=== PATIENT | female | born 1950 | race Caucasian/White ===

== ENCOUNTER → 2019-03-26 | Outpatient (CLI) | payer MEDICARE, OTHER ==
--- NOTE | 2019-04-01 18:59 | Diagnostic Imaging Report ---
INDICATION: Routine screening. Comparison is made with prior mammograms from 11/12/2017 and 04/16/2016. 2-D and 3-D bilateral screening mammography was performed. The current study was also evaluated with a Computer Aided Detection (CAD) system. 3-D tomosynthesis was also performed and reviewed. FINDINGS: Scattered fibroglandular densities are identified bilaterally. There are benign-appearing calcifications throughout both breasts. No dominant mass or malignant-appearing microcalcifications are seen. Axillae are unremarkable. IMPRESSION: No mammographic features suspicious for malignancy are identified. ACR BI-RADS Category 2: Benign findings. Result letter will be mailed to the patient. Note: At least 10% of breast cancer is not imaged by mammography. Dictated by: Dictated on workstation # [id number]
== END ==
LOC: MERGE 09:47 → RAD 09:47
PROVIDERS: ATTEND Family Medicine
DX: Z12.31 Encounter for screening mammogram for malignant neoplasm of breast (principal)
CPT/HCPCS: 77067

== ENCOUNTER → 2019-03-26 | Outpatient (CLI) | payer MEDICARE, OTHER ==
[2019-03-26 09:11] LABS: HEMOGLOBIN 13.8 G/DL (11.5-16.0); RED CELL DISTRIBUTION WIDTH 13.4 % (10.0-14.5)
[2019-03-26 09:31] LABS: ALANINE AMINOTRANSFERASE 14 U/L (0-55); ALBUMIN 4.2 GM/DL (3.2-4.5); ALKALINE PHOSPHATASE 66 U/L (40-136); BILIRUBIN,TOTAL 0.4 MG/DL (0.1-1.0); BUN/CREATININE RATIO 22; CALCIUM 9.3 MG/DL (8.5-10.1); CARBON DIOXIDE 27 MMOL/L (21-32); CHLORIDE 91 MMOL/L (98-107); CREATININE SERUM 0.85 MG/DL (0.60-1.30); GFR ESTIMATED > 60; GLUCOSE 92 MG/DL (70-105); POTASSIUM 4.2 MMOL/L (3.6-5.0); SODIUM 132 MMOL/L (135-145); TOTAL PROTEIN 7.1 GM/DL (6.4-8.2)
[2019-03-26 09:38] LABS: CLARITY,URINE CLEAR; COLOR,URINE YELLOW; GLUCOSE, URINE (UA) NEGATIVE (NEGATIVE); PH,URINE 7.5 (5-9); PROTEIN,URINE NEGATIVE (NEGATIVE)
[2019-03-26 09:39] LABS: BACTERIA,URINE FEW /HPF; BILIRUBIN,URINE NEGATIVE (NEGATIVE); KETONES,URINE NEGATIVE (NEGATIVE); LEUKOCYTE ESTERASE ,URINE 1+ (NEGATIVE); NITRITE,URINE NEGATIVE (NEGATIVE); RBC,URINE 0-2 /HPF; SQUAMOUS EPITHELIAL CELL,UR 0-2 /HPF; UROBILINOGEN,URINE 0.2 MG/DL (NORMAL)
[2019-03-26 14:59] LABS: CHOLESTEROL 249 MG/DL (< 200); HDL CHOLESTEROL 79 MG/DL (40-60); TRIGLYCERIDES 93 MG/DL (<150); VLDL CHOLESTEROL 19 MG/DL (5-40)
== END ==
LOC: LAB FS 08:35
PROVIDERS: ATTEND Family Medicine
DX: I10 Essential (primary) hypertension (principal); E80.29 Other porphyria
CPT/HCPCS: 36415; 80053; 80061; 81000; 84443; 85027; 87088

== ENCOUNTER → 2019-07-14 | Outpatient (CLI) | payer MEDICARE, OTHER ==
[2019-07-14 14:38] LABS: CHOLESTEROL 214 MG/DL (< 200); HDL CHOLESTEROL 79 MG/DL (40-60); TRIGLYCERIDES 65 MG/DL (<150); VLDL CHOLESTEROL 13 MG/DL (5-40)
== END ==
LOC: LAB FS 10:28
PROVIDERS: ATTEND Family Medicine
DX: Z09 Encounter for follow-up examination after completed treatment for conditions other than malignant neoplasm (principal)
CPT/HCPCS: 36415; 80061

== ENCOUNTER → 2020-04-18 | Outpatient (CLI) | payer MEDICARE, OTHER ==
[2020-04-18 14:19] LABS: HEMOGLOBIN 13.4 G/DL (11.5-16.0); WHITE BLOOD COUNT 5.1 10^3/uL (4.3-11.0)
[2020-04-18 14:20] LABS: MEAN PLATELET VOLUME 8.9 FL (7.4-10.4); RED CELL DISTRIBUTION WIDTH 12.8 % (10.0-14.5)
[2020-04-18 14:24] LABS: CLARITY,URINE CLEAR; COLOR,URINE YELLOW
[2020-04-18 14:25] LABS: BACTERIA,URINE NEGATIVE /HPF; BILIRUBIN,URINE NEGATIVE (NEGATIVE); GLUCOSE, URINE (UA) NEGATIVE (NEGATIVE); KETONES,URINE TRACE (NEGATIVE); LEUKOCYTE ESTERASE ,URINE NEGATIVE (NEGATIVE); NITRITE,URINE NEGATIVE (NEGATIVE); PROTEIN,URINE NEGATIVE (NEGATIVE); RBC,URINE RARE /HPF
[2020-04-18 14:55] LABS: ALANINE AMINOTRANSFERASE 18 U/L (0-55); ALKALINE PHOSPHATASE 56 U/L (40-136); BILIRUBIN,TOTAL 0.4 MG/DL (0.1-1.0); BUN/CREATININE RATIO 18; CALCIUM 9.6 MG/DL (8.5-10.1); CARBON DIOXIDE 26 MMOL/L (21-32); CHLORIDE 91 MMOL/L (98-107); CREATININE SERUM 0.73 MG/DL (0.60-1.30); GFR ESTIMATED > 60; GLUCOSE 93 MG/DL (70-105); POTASSIUM 4.1 MMOL/L (3.6-5.0); SODIUM 129 MMOL/L (135-145); TOTAL PROTEIN 6.9 GM/DL (6.4-8.2)
[2020-04-18 14:56] LABS: ALBUMIN 4.2 GM/DL (3.2-4.5)
[2020-04-18 21:41] LABS: CHOLESTEROL 208 MG/DL (< 200); HDL CHOLESTEROL 74 MG/DL (40-60); TRIGLYCERIDES 70 MG/DL (<150); VLDL CHOLESTEROL 14 MG/DL (5-40)
== END ==
LOC: LAB FS 13:54
PROVIDERS: ATTEND Family Medicine
DX: E78.5 Hyperlipidemia, unspecified (principal); I10 Essential (primary) hypertension
CPT/HCPCS: 36415; 80053; 80061; 81000; 84443; 85027

== ENCOUNTER → 2020-09-27 | Outpatient (CLI) | payer MEDICARE, OTHER ==
[2020-09-27 12:32] LABS: BUN/CREATININE RATIO 23; CARBON DIOXIDE 26 MMOL/L (21-32); CHLORIDE 93 MMOL/L (98-107); CREATININE SERUM 0.75 MG/DL (0.60-1.30); GFR ESTIMATED > 60; POTASSIUM 4.3 MMOL/L (3.6-5.0); SODIUM 128 MMOL/L (135-145)
[2020-09-27 12:33] LABS: ALANINE AMINOTRANSFERASE 36 U/L (0-55); ALBUMIN 4.3 GM/DL (3.2-4.5); ALKALINE PHOSPHATASE 54 U/L (40-136); BILIRUBIN,TOTAL 0.2 MG/DL (0.1-1.0); GLUCOSE 99 MG/DL (70-105); TOTAL PROTEIN 6.5 GM/DL (6.4-8.2)
== END ==
LOC: LAB FS 11:42
PROVIDERS: ATTEND Family Medicine
DX: R79.9 Abnormal finding of blood chemistry, unspecified (principal)
CPT/HCPCS: 36415; 80053

== ENCOUNTER → 2020-10-12 | Outpatient (CLI) | payer MEDICARE, OTHER ==
[2020-10-12 12:46] LABS: BUN/CREATININE RATIO 22; CARBON DIOXIDE 27 MMOL/L (21-32); CHLORIDE 96 MMOL/L (98-107); CREATININE SERUM 0.85 MG/DL (0.60-1.30); GFR ESTIMATED > 60; GLUCOSE 96 MG/DL (70-105); POTASSIUM 4.3 MMOL/L (3.6-5.0); SODIUM 132 MMOL/L (135-145)
[2020-10-12 12:47] LABS: ALANINE AMINOTRANSFERASE 16 U/L (0-55); ALBUMIN 4.1 GM/DL (3.2-4.5); ALKALINE PHOSPHATASE 52 U/L (40-136); BILIRUBIN,TOTAL 0.2 MG/DL (0.1-1.0); CALCIUM 9.3 MG/DL (8.5-10.1); TOTAL PROTEIN 6.4 GM/DL (6.4-8.2)
== END ==
LOC: LAB FS 11:49
PROVIDERS: ATTEND Family Medicine
DX: R79.9 Abnormal finding of blood chemistry, unspecified (principal)
CPT/HCPCS: 36415; 80053

== ENCOUNTER → 2021-02-28 | Outpatient (CLI) | payer MEDICARE, OTHER ==
[2021-02-28 08:27] LABS: HEMATOCRIT 39 % (35-52); HEMOGLOBIN 13.4 G/DL (11.5-16.0); MEAN CORPUSCULAR HEMOGLOBIN 33 PG (25-34); MEAN CORPUSCULAR HGB CONC 35 G/DL (32-36); MEAN CORPUSCULAR VOLUME 94 FL (80-99); PLATELET COUNT 294 10^3/uL (130-400); WHITE BLOOD COUNT 3.9 10^3/uL (4.3-11.0)
[2021-02-28 08:28] LABS: MEAN PLATELET VOLUME 8.4 FL (7.4-10.4)
[2021-02-28 08:35] LABS: BACTERIA,URINE NEGATIVE /HPF; BILIRUBIN,URINE NEGATIVE (NEGATIVE); CLARITY,URINE CLEAR; COLOR,URINE YELLOW; GLUCOSE, URINE (UA) NEGATIVE (NEGATIVE); KETONES,URINE NEGATIVE (NEGATIVE); LEUKOCYTE ESTERASE ,URINE NEGATIVE (NEGATIVE); NITRITE,URINE NEGATIVE (NEGATIVE); PROTEIN,URINE NEGATIVE (NEGATIVE); RBC,URINE 0-2 /HPF; SQUAMOUS EPITHELIAL CELL,UR RARE /HPF; WBC,URINE RARE /HPF
[2021-02-28 08:36] LABS: AMORPHOUS SEDIMENT,UR FEW AMOR PHOSPHATE /LPF
[2021-02-28 09:22] LABS: BUN/CREATININE RATIO 20; CARBON DIOXIDE 26 MMOL/L (21-32); CHLORIDE 96 MMOL/L (98-107); CREATININE SERUM 0.76 MG/DL (0.60-1.30); GFR ESTIMATED > 60; POTASSIUM 4.2 MMOL/L (3.6-5.0); SODIUM 131 MMOL/L (135-145)
[2021-02-28 09:23] LABS: ALANINE AMINOTRANSFERASE 20 U/L (0-55); ALBUMIN 4.1 GM/DL (3.2-4.5); ALKALINE PHOSPHATASE 65 U/L (40-136); BILIRUBIN,TOTAL 0.4 MG/DL (0.1-1.0); CALCIUM 9.1 MG/DL (8.5-10.1); GLUCOSE 90 MG/DL (70-105); TOTAL PROTEIN 6.5 GM/DL (6.4-8.2)
[2021-02-28 14:54] LABS: CHOLESTEROL 196 MG/DL (< 200); HDL CHOLESTEROL 68 MG/DL (40-60); TRIGLYCERIDES 99 MG/DL (<150); VLDL CHOLESTEROL 20 MG/DL (5-40)
[2021-02-28 15:10] LABS: BASOPHILS % (AUTO) 1 % (0-10); EOSINOPHILS % (AUTO) 3 % (0-10); LYMPHOCYTES % (AUTO) 27 % (12-44); MONOCYTES % (AUTO) 10 % (0-12); NEUTROPHILS % (AUTO) 59 % (42-75)
[2021-02-28 15:11] LABS: EOSINOPHILS # (AUTO) 0.1 10^3/uL (0.0-0.3); LYMPHOCYTES # (AUTO) 1.1 X 10^3 (1.0-4.0); MONOCYTES # (AUTO) 0.4 X 10^3 (0.0-1.0); NEUTROPHILS # (AUTO) 2.3 X 10^3 (1.8-7.8)
== END ==
LOC: LAB FS 07:53
PROVIDERS: ATTEND Family Medicine
DX: I10 Essential (primary) hypertension (principal); E78.6 Lipoprotein deficiency
CPT/HCPCS: 36415; 80053; 80061; 81000; 84443; 85025; 85027

== ENCOUNTER 2021-11-09 14:16 | Emergency (ER) | payer MEDICARE, OTHER ==
[~2021-11-09] VITALS: Ht 154.9 cm; Wt 66.3 kg
[2021-11-09] MEDS ORDERED: ONDANSETRON 4 MG (ZOFRAN) ORAL DISSOLVE TAB PO STA (14:41)
[2021-11-09] MEDS ORDERED: morphine INJ 10 MG/ML 1ML (SYR OR VIAL) IM STA (14:41)
[2021-11-09] MEDS ORDERED: KETOROLAC 30 MG/ML VIAL IM ONE (14:45)
--- NOTE | 2021-11-09 14:51 | ED Back Pain ---
General Chief Complaint: Back Problems Stated Complaint: BACK INJ Nursing Triage Note: Patient presents to the ED with c/o lower back pain after a fall. States that she was standing on a stool that had two steps and when she stepped back she fell off the stool and directly onto her bottom. She reports it took her nearly 30 minutes to stand up. Pain is increased with movement. Source of Information: Patient Exam Limitations: No Limitations History of Present Illness Date Seen by Provider: Nov 09, 2021 Time Seen by Provider: 14:30 Initial Comments Patient is a 71-year-old female who presents with acute on onset low back pain after falling from a top two step stool and landing directly on her back. The injury occurred 12 hours ago. The patient denies hitting her head, headache, neck pain, chest or upper or back pain. She is not on anticoagulation therapy. Pain is sharp, severe 8 out of 10 and is nonradicular. It is worse with movement and ambulation. There is no lower extremity weakness or loss of sensation. Patient denies other symptoms or complaints. Location: Lumbar Spine Timing/Duration: Other Severity: Moderate Radiation: Other Method of Injury: Other Modifying Factors: Improves With Other Associated Symptoms: other Allergies and Home Medications Allergies Coded Allergies: No Known Drug Allergies (Unverified , 11/09/21) Patient Home Medication List Home Medication List Reviewed: Yes Review of Systems Constitutional: see HPI EENTM: see HPI Respiratory: see HPI Cardiovascular: see HPI Gastrointestinal: see HPI Genitourinary: see HPI Musculoskeletal: see HPI Skin: see HPI Psychiatric/Neurological: See HPI Past Wflkxvx-Ncupvs-Jiuuug Hx Patient Social History Tobacco Use?: No Use of E-Cig and/or Vaping dev: No Substance use?: No Alcohol Use?: No Pt feels they are or have been: No Immunizations Up To Date Influenza Vaccine Up-to-Date: Yes; Up-to-Date First/Initial COVID19 Vaccinat: Yes Second COVID19 Vaccination Juan: Yes COVID19 Vaccine Talent 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 oz. kg; 27.00 BMI Method: General Appearance: Mild Distress HEENT: PERRL/EOMI, TMs Normal Neck: Full Range of Motion, Normal Inspection, Non Tender Back: Decreased Range of Motion, Other (Diffuse lower lumbar vertebral/paravertebral pain tenderness. 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 II- XII Norm as Tested Progress/Results/Core Measures Results/Orders My Orders Orders - MARIAN KIRK DO Ketorolac Injection (Toradol Injection) (11/09/21 14:45) Morphine Injection (Morphine Injection (11/09/21 14:41) Ondansetron Oral Dissolve Tab (Zofran (11/09/21 14:41) Ct Lumbar Spine Wo (11/09/21 14:41) Medications Given in ED Current Medications Medications Dose Ordered Sig/Darnell Route Start Time Stop Time Status Last Admin Dose Admin Ketorolac Tromethamine 30 mg ONCE ONCE IM 11/09/21 14:45 11/09/21 14:46 DC 11/09/21 14:49 30 MG Vital Signs/I&O 11/09/21 14:23 Temp 36.2 Pulse 100 Resp 18 B/P (MAP) 140/65 (90) Pulse Ox 97 O2 Delivery Room Air Blood Pressure Mean: 90 Departure Communication (Admissions) CT lumbar spine: No fracture 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 Pain improved. Recommendations for supportive care watchful waiting and PCP follow-up. Return precautions reviewed. Patient verbalizes understanding agreement discharge instructions prior to departure. Impression Primary Impression: Lumbar back sprain Disposition: HOME, SELF-CARE Condition: Stable Departure-Patient Inst. Decision time for Depature: 16:06 Referrals: MARIANA SHEFFIELD MD (PCP) Primary Care Physician Patient Instructions: Back Muscle Strain (DC) Add. Discharge Instructions: Please go home rest. Avoid heavy lifting and strenuous physical activity. Continue normal activity as tolerated. Continue meloxicam and take tramadol and Flexeril as needed for additional relief. Follow-up with your PCP in 7 to 10 days if symptoms persist. All discharge instructions reviewed with patient and/or family. Voiced understanding. Scripts Tramadol HCl (Tramadol HCl) 50 Mg Tablet 50 MG PO Q6H, #20 TAB Prov: MARIAN KIRK DO 11/09/21 Cyclobenzaprine HCl (Cyclobenzaprine HCl) 10 Mg Tablet 10 MG PO TID, #30 TAB Prov: MARIAN KIRK DO 11/09/21 MARIAN KIRK DO Nov 09, 2021 14:51
--- NOTE | 2021-11-09 15:20 | Diagnostic Imaging Report ---
PROCEDURE: CT lumbar spine without contrast. TECHNIQUE: Multiple contiguous axial images were obtained through the lumbar spine without the use of intravenous contrast. Sagittal and coronal reformations were then performed. Auto Exposure Controls were utilized during the CT exam to meet ALARA standards for radiation dose reduction. INDICATION: Fall. COMPARISON: No prior studies are available for comparison. FINDINGS: There is straightening of the normal lumbar lordotic curvature. There is anterolisthesis of L2 on L3 and L3 on L4. There are post-kyphoplasty changes at the L3 level. Moderate volume loss of the L3 vertebral body is noted. The remaining vertebrae show normal stature. No new compression fracture is seen. There is multilevel degenerative disc disease with disc space narrowing and marginal spurring, greatest at the L3-L4 and L4-L5 levels where there is complete loss of the disc space. There are hypertrophic facet changes at all levels. The paraspinous tissues are unremarkable. IMPRESSION: Degenerative and post-therapeutic changes, as described. No acute bony abnormality is detected. Dictated by: Dictated on workstation # [id number]
[2021-11-09] MEDS ORDERED: CYCL10TA25 PO (16:08)
[2021-11-09] MEDS ORDERED: TRAM50TA3 PO (16:08)
[2021-11-09 16:13] VITALS: BP 134/62
== END 2021-11-09 16:13 | disposition home or self-care (01) ==
LOC: EDUNIT# 14:16 → ER FS 14:17
DX: S33.5XXA Sprain of ligaments of lumbar spine, initial encounter (principal); W17.89XA Other fall from one level to another, initial encounter
CPT/HCPCS: 72131

== ENCOUNTER → 2021-12-05 | Outpatient (CLI) | payer MEDICARE, OTHER ==
[~2021-12-05] MED LIST: CYCL10TA25 PO; TRAM50TA3 PO
--- NOTE | 2021-12-05 10:37 | Diagnostic Imaging Report ---
Indication: Low back pain Lumbar spine AP and lateral views of lumbar spine shows a grade 1 spondylolisthesis at L2-L3 and L3-L4. Patient's had previous kyphoplasty of L3. There is advanced degenerative disc changes at L4-L5 as well as L2-L3 and L3-L4. L1-L2 disc space is also narrowed. There is compression fracture T12 with anterior wedging. IMPRESSION: Acute appearing compression fracture of T12. Dictated by: Dictated on workstation # [id number]
--- NOTE | 2021-12-05 10:37 | Diagnostic Imaging Report ---
Indication: Back pain Thoracic spine AP and lateral views of the thoracic spine show spondylosis with osteophytes forming anteriorly at multiple levels some of which are bridging. Alignment is normal. There is compression fracture of T12. There is anterior wedging with two thirds of loss of height anteriorly. IMPRESSION: Compression fracture T12 that is new since 11/09/2021. Dictated by: Dictated on workstation # [id number]
== END ==
LOC: RAD FS 10:01
PROVIDERS: ATTEND Neurological Surgery
DX: M48.54XA Collapsed vertebra, not elsewhere classified, thoracic region, initial encounter for fracture (principal); M81.0 Age-related osteoporosis without current pathological fracture
CPT/HCPCS: 72070; 72100

== ENCOUNTER → 2022-01-07 | Outpatient (CLI) | payer MEDICARE, OTHER ==
--- NOTE | 2022-01-07 10:03 | Diagnostic Imaging Report ---
INDICATION: Osteoporosis. TIME OF EXAM: 9:19 AM. TECHNIQUE: Three views of the lumbar spine were obtained. FINDINGS: Kyphoplasty changes at L3 are again noted. The compression fracture deformity at T12 is again noted as seen on x-rays of the lumbar spine from 12/05/2021. Spondylolisthesis of L2 on L3 and L3 on L4 is similar to the prior study. Severe multilevel degenerative disc disease is noted with disc space narrowing and marginal spurring. No new compression fracture deformity is identified. IMPRESSION: Stable lumbar spine radiographs when compared to the examination from 1 month earlier. Dictated by: Dictated on workstation # [id number]
== END ==
LOC: RAD FS 09:04
PROVIDERS: ATTEND Physician Assistant
DX: M81.0 Age-related osteoporosis without current pathological fracture (principal)
CPT/HCPCS: 72100

== ENCOUNTER → 2022-02-20 | Outpatient (CLI) | payer MEDICARE, OTHER ==
--- NOTE | 2022-02-20 18:04 | Diagnostic Imaging Report ---
INDICATION: Back pain. EXAMINATION: AP and lateral views of the lumbar spine were obtained. COMPARISON: 01/07/2022. FINDINGS: Patient has had previous kyphoplasty at the L3 level. T12 compression fracture appears similar to the previous study. There is unchanged anterolisthesis of L2 on L3. There is unchanged anterolisthesis of L3 on L4. There is severe disc space narrowing at L4-L5. IMPRESSION: Multilevel degenerative changes, as described above, which are similar to the prior study of 01/07/2022. Post kyphoplasty changes at L3. Chronic compression deformity at T12. Stable multilevel anterolistheses, as mentioned above. Dictated by: Dictated on workstation # [id number]
== END ==
LOC: RAD FS 15:36
PROVIDERS: ATTEND Physician Assistant
DX: M48.54XA Collapsed vertebra, not elsewhere classified, thoracic region, initial encounter for fracture (principal); M48.061 Spinal stenosis, lumbar region without neurogenic claudication; M43.16 Spondylolisthesis, lumbar region; Z98.1 Arthrodesis status
CPT/HCPCS: 72100

== ENCOUNTER 2022-07-17 13:11 | Emergency (ER) | payer MEDICARE, OTHER ==
--- NOTE | 2022-07-17 14:01 | Diagnostic Imaging Report ---
INDICATION: Chest wall injury, shortness of breath. PA and lateral chest obtained at 1:51 p.m. FINDINGS: Heart and mediastinal silhouette are normal in appearance. The lungs are clear. There is no pneumothorax or pleural fluid. IMPRESSION: Negative chest. Dictated by: Dictated on workstation # [id number]
[2022-07-17] MEDS ORDERED: ALPRAZolam 0.25 MG (XANAX) TAB PO ONE (14:15)
--- NOTE | 2022-07-17 14:15 | ED Chest Pain ---
General Chief Complaint: Chest Wall Stated Complaint: FALL; SOB Nursing Triage Note: PT FELL GETTING OUT OF THE BATH TUB ON FRIDAY AND HAS HAD CHEST SORENESS SINCE THEN. SHE REPORTS SHE FEELS SHORT OF BREATH NOW. Source: patient Exam Limitations: no limitations History of Present Illness Date Seen by Provider: Jul 17, 2022 Time Seen by Provider: 13:45 Initial Comments Patient is a 71-year-old male who presents with chest wall pain who presents with chest wall soreness since falling and striking her chest on the bathtub 3 days ago. Pain is sore with deep breathing and car ride. She is not on anticoagulation therapy. She denies shortness of breath, arm neck jaw shoulder pain or other cardiac equivalents. No medications or therapies prior to ED arrival. Timing/Duration: 1-3 hours, 2-3 days Severity/Quality: other Location: other Radiation: other Activities at Onset: other Prior CP/Workup: other Modifying Factors: improves with other Allergies and Home Medications Allergies Coded Allergies: No Known Drug Allergies (Unverified , 11/09/21) Patient Home Medication List Home Medication List Reviewed: Yes Cyclobenzaprine HCl (Cyclobenzaprine HCl) 10 Mg Tablet, 10 MG PO TID Prescribed by: MARIAN KIRK on 11/09/21 1608 Tramadol HCl (Tramadol HCl) 50 Mg Tablet, 50 MG PO Q6H Prescribed by: MARIAN KIRK on 11/09/21 1609 Review of Systems Review of Systems Constitutional: see HPI EENTM: See HPI Respiratory: See HPI Cardiovascular: See HPI Past Ltpidit-Mdnkjs-Xsaggj Hx Patient Social History Tobacco Use?: No Use of E-Cig and/or Vaping dev: No Substance use?: No Alcohol Use?: No Pt feels they are or have been: No Immunizations Up To Date First/Initial COVID19 Vaccinat: Yes Second COVID19 Vaccination Juan: Yes Third COVID19 Vaccination Date: Yes Past Medical History Surgery/Hospitalization HX: Depression; high cholesterol; hypertension; GERD; Neuropathy; Tubal ligation; tonsillectomy; Cholecysectomy; Vertebrae compression fracture; kyphoplasty; pancreatitis Physical Exam Vital Signs Vital Signs - First Documented 07/17/22 13:27 Temp 35.7 Pulse 102 Resp 16 B/P (MAP) 155/89 (111) Pulse Ox 96 O2 Delivery Room Air Capillary Refill : Less Than 3 Seconds Height, Weight, BMI Height: '" Weight: lbs. oz. kg; 27.00 BMI Method: General Appearance: No Apparent Distress, WD/WN Respiratory: Chest Non Tender, Lungs Clear Cardiovascular: Regular Rate, Rhythm, No Edema, Other (Tenderness of sternum, no step-off or subcutaneous emphysema) Gastrointestinal: Non Tender, Soft Focused Exam Sepsis Stage: Ruled Out Progress/Results/Core Measures Results/Orders My Orders Orders - MARIAN KIRK DO Chest Pa/Lat (2 View) (07/17/22 13:39) Alprazolam Tablet (Xanax Tablet) (07/17/22 14:15) Vital Signs/I&O 07/17/22 13:27 Temp 35.7 Pulse 102 Resp 16 B/P (MAP) 155/89 (111) Pulse Ox 96 O2 Delivery Room Air Blood Pressure Mean: 111 Departure Impression Primary Impression: Chest wall contusion Disposition: 01 HOME, SELF-CARE Condition: Stable Departure-Patient Inst. Decision time for Depature: 14:14 Referrals: MARIANA SHEFFIELD MD (PCP) Primary Care Physician Patient Instructions: Minor Contusion ED Add. Discharge Instructions: You were evaluated in the emergency department for chest wall pain after a fall. Chest x-ray was performed does not show acute fracture or pulmonary injury. Please take Tylenol for pain and Xanax as needed for anxiety. Follow-up with your PCP as needed. Return to the ED if new or concerning symptoms. All discharge instructions reviewed with patient and/or family. Voiced understanding. MARIAN KIRK DO Jul 17, 2022 14:15
[2022-07-17 14:16] VITALS: BP 124/76
== END 2022-07-17 14:17 | disposition home or self-care (01) ==
LOC: EDUNIT# 13:11 → ER FS 13:12
DX: S20.219A Contusion of unspecified front wall of thorax, initial encounter (principal); W18.2XXA Fall in (into) shower or empty bathtub, initial encounter; W22.8XXA Striking against or struck by other objects, initial encounter
CPT/HCPCS: 71046

== ENCOUNTER → 2023-03-12 | Outpatient (CLI) | payer MEDICARE, OTHER ==
--- NOTE | 2023-03-12 15:53 | Diagnostic Imaging Report ---
HISTORY: Low back pain, spondylosis COMPARISON: 02/20/2022 TECHNIQUE: 4 views of the lumbar spine FINDINGS: There is a severe compression deformity of T12 which is unchanged. There are kyphoplasty changes at L3. Vertebral body heights are otherwise unchanged since the prior study with no acute fracture seen. There is grade 1 retrolisthesis at T12-L1. There is grade 1 anterolisthesis at L2-L3 and L3-L4. Flexion and extension views demonstrate no dynamic instability. There are severe degenerative change at L2-L3, L3-L4, L4-L5. Cholecystectomy clips are noted. There is facet arthropathy in the lumbar spine. Bilateral sacroiliac joints are patent. IMPRESSION: 1. Advanced degenerative changes in the lumbar spine. Multilevel spondylolisthesis with no evidence of dynamic instability. 2. Chronic compression deformities of T12 and L3. No acute fracture is seen. Dictated by: Dictated on workstation # [id number]
--- NOTE | 2023-03-12 16:16 | Diagnostic Imaging Report ---
PROCEDURE: MRI lumbar spine. TECHNIQUE: Multiplanar, multisequence MRI of the lumbar spine was performed without contrast. INDICATION: Chronic lower back pain. COMPARISON: CT dated 11/09/2021 FINDINGS: For the purposes of this exam, last well-formed disc space is noted at the L5-S1 level. Evaluation of static alignment shows mild grade 1 anterolisthesis at L2-L3. There is no evidence of jumped facets. Chronic compression deformities of T12, L3, and L4 are noted. Patient is status post previous cement augmentation at L3. No acute fracture is seen. Marrow signal is otherwise unremarkable. There is moderate multilevel intervertebral disc height loss as well as multilevel anterior and posterior disc bulging. Visualized portions of distal cord are unremarkable. Conus terminates at approximately the L1 level. No abnormal intrathecal filling defects are seen. Pre and paravertebral soft tissue structures are unremarkable. Axial images demonstrate the following: T12: There is moderate to advanced spinal canal stenosis secondary to chronic retropulsion of T12 fracture fragments. L1-L2: There is no large disc bulge or focal protrusion. There is no significant spinal canal or neuroforaminal stenosis. L2-L3: There is broad-based posterior disc bulge and bilateral ligamentum flavum laxity and facet arthropathy. As a result, there is severe spinal canal stenosis. Thecal sac is narrowed to approximately 6 mm in AP thickness. There is also mild narrowing of bilateral neural foramen. L3-L4: There is broad-based posterior disc osteophyte complex formation and bilateral ligamentum flavum laxity and facet arthropathy. As a result, there is severe spinal canal stenosis. Thecal sac is narrowed to approximately 6 mm in AP thickness. There is also moderate to severe bilateral neuroforaminal stenosis. L4-L5: There is broad-based posterior disc osteophyte complex formation and bilateral ligamentum flavum laxity and facet arthropathy. As a result, there is moderate narrowing of the spinal canal and bilateral neural foramen. L5-S1: There is central posterior disc protrusion, but no significant spinal canal or neuroforaminal stenosis. IMPRESSION: 1. Advanced multilevel degenerative changes of the lumbar spine greatest at the L2-L3 and L3-L4 levels as above. 2. High-grade stenosis at T12 is also present secondary to chronic retropulsion from prior T12 fracture. 3. No acute fracture or dislocation is seen on today's exam. Dictated by: Dictated on workstation # [id number]
== END ==
LOC: RAD 08:10
PROVIDERS: ATTEND Pain Medicine Interventional Pain Medicine
DX: M47.816 Spondylosis without myelopathy or radiculopathy, lumbar region (principal); M43.9 Deforming dorsopathy, unspecified; M51.24 Other intervertebral disc displacement, thoracic region; M51.26 Other intervertebral disc displacement, lumbar region; M48.04 Spinal stenosis, thoracic region; M48.061 Spinal stenosis, lumbar region without neurogenic claudication; M25.78 Osteophyte, vertebrae; M51.27 Other intervertebral disc displacement, lumbosacral region
CPT/HCPCS: 72110; 72148